=== PATIENT | male | born 1985 | race African-American/Black ===

== ENCOUNTER 2017-11-24 20:09 | Observation (INO) | payer OTHER ==
--- NOTE | 2017-11-24 20:33 | ER Document Report ---
ED General - General Chief Complaint: Hyperventilation Stated Complaint: SYNCOPE Time Seen by Provider: 11/24/17 20:19 Notes: Patient is a 32-year-old male comes emergency department for chief complaint of a syncopal episode. Patient comes by EMS. states that patient called her and said he was coming home from work because he was feeling lightheaded and nauseated, he states that he had pain in his chest. states that after he got home he took a few steps and then crumpled to the floor. She does not think he hit his head hard on the ground. She states that for at least a couple of minutes she could not arouse him, when she did arouse and he was able to answer her. No seizure activity. EMS states that patient began hyperventilating when they got there and has answered minimal questions. Past medical history of hypothyroidism on Synthroid, takes supplements, does not smoke, drinks alcohol ( states he has been drinking every day for the past few days, this is abnormal for him), and anxiety which is not medicated. denies history of panic attacks, syncope, or similar behavior. At this time patient states he hurts in his chest, he feels lightheaded, and he feels nauseated. He states he had chest pain before he passed out. He denies headache , focal numbness or weakness. - Related Data Allergies/Adverse Reactions: No Known Allergies Allergy (Unverified 11/24/17 20:31) Past Medical History - General Information source: Patient - Social History Smoking Status: Never Smoker Frequency of alcohol use: Social Drug Abuse: None Lives with: Family Family History: Reviewed & Not Pertinent - Medical History Medical History: Negative Surgical Hx: Negative - Immunizations Hx Diphtheria, Pertussis, Tetanus Vaccination: Yes Review of Systems - Review of Systems Constitutional: No symptoms reported EENT: No symptoms reported Cardiovascular: See HPI Respiratory: See HPI Gastrointestinal: No symptoms reported Genitourinary: No symptoms reported Male Genitourinary: No symptoms reported Musculoskeletal: No symptoms reported Skin: No symptoms reported Hematologic/Lymphatic: No symptoms reported Neurological/Psychological: See HPI Physical Exam - Vital signs Vitals: Resp BP Pulse Ox 29 H 129/71 H 100 11/24/17 20:12 11/24/17 20:12 11/24/17 20:12 - Notes Notes: GENERAL: Patient lying on the bed with his head back on the pillow with his eyes closed. HEAD: Normocephalic, atraumatic. EYES: Pupils slightly pinpoint, reactive to light, EOMs intact. ENT: Oral mucosa moist, tongue midline. [Nares patent, no nasal septal hematoma , TM's intact.] NECK: Full range of motion. Supple. Trachea midline. LUNGS: Clear to auscultation bilaterally, no wheezes, rales, or rhonchi. Mild tachypnea. HEART: Tachycardia with regular rhythm, no murmur ABDOMEN: Soft, non-tender. Non-distended. Bowel sounds present in all 4 quadrants. EXTREMITIES: Moves all 4 extremities spontaneously. No edema, normal radial and dorsalis pedis pulses bilaterally. No cyanosis. BACK: no cervical, thoracic, lumbar midline tenderness. No saddle anesthesia, normal distal neurovascular exam. NEUROLOGICAL: Patient cooperative but he appears slightly sedated, he is sluggish, he has amnesia to events, he asked his who she was, however he cooperates with a normal neurological exam otherwise with cranial nerves intact. SKIN: Warm, dry, normal turgor. No rashes or lesions noted. Course - Re-evaluation Re-evalutation: Patient lying on the bed, mild tachypnea, eyes closed, he will open his eyes and follow directions, he looked at his and asked "who are you". He does cooperate with the neurological exam. He is tachycardic, oxygen saturation is normal, blood pressure 129 systolic with map of 85. Workup pending. 11/24/17 CT of the head is negative, patient is much more calm and relaxed on reevaluation, has been given IV fluids, heart rate is 99. CBC is unremarkable. Chemistry shows elevated creatinine 1.62, no comparison. CK is only mildly elevated. Bicarb is slightly low at 19. Patient is cooperative, he still states he feels discomfort in his chest, he still is disoriented to events, he states that he was told he is in the hospital and he remembers that but he has been unable to identify new family members coming into the room. Patient denies recreational drugs, states she is concerned he might have taken something, drug screen has not yet resulted. Drug screen is negative. On reevaluation patient with no complaints. States his chest pain is resolved, states he feels fine, just tired. No current complaints. I am unsure what the cause of his chest pain, syncopal episode, and confusions. I suspect that he hit his head and he is postconcussive although he does not have any evidence of head injury on evaluation. Patient is significantly improved now, he is much more alert and oriented, he still does not remember all the events. He is not decompensating. I discussed with Dr. Schafer, because of his concerning reported symptoms including chest pain with syncope he recommends telemetry observation. Discussed with hospitalist, Dr. Smith, patient will be admitted to telemetry observation. Patient and family state understanding and agreement. - Vital Signs Vital signs: Temp Pulse Resp BP Pulse Ox 98.5 F 65 22 H 95/48 L 100 11/25/17 04:00 11/25/17 04:00 11/25/17 04:00 11/25/17 04:00 11/25/17 04:00 - Laboratory Result Diagrams: 11/24/17 19:45 11/24/17 19:45 Laboratory results interpreted by me: 11/24/17 11/24/17 11/24/17 19:45 19:45 22:44 Lymphocytes % 45.2 H Carbon Dioxide 19 L Creatinine 1.62 H Est GFR (Non-Af Amer) 50 L Creatine Kinase 408 H Urine Protein 30 H Urine Ketones 20 H Discharge - Discharge Clinical Impression: Episode of syncope Qualifiers: Syncope type: unspecified Qualified Code(s): R55 - Syncope and collapse Chest pain Qualifiers: Chest pain type: unspecified Qualified Code(s): R07.9 - Chest pain, unspecified Head injury Qualifiers: Encounter type: initial encounter Qualified Code(s): S09.90XA - Unspecified injury of head, initial encounter Condition: Stable Disposition: ADMITTED OBSERVATION Admitting Provider: Hospitalist Unit Admitted: Telemetry
[2017-11-24] MEDS ORDERED: NORMAL SALINE 1000 ML 1,000 ML IV ONE (20:34)
--- NOTE | 2017-11-24 20:35 | EKG REPORT ---
SEVERITY:- BORDERLINE ECG - SINUS RHYTHM PROBABLE LEFT ATRIAL ABNORMALITY LOW VOLTAGE IN FRONTAL LEADS : Confirmed by: Roshan Rodriguez MD 24-Nov-2017 20:34:39
[2017-11-24 21:07] LABS: ABSOLUTE EOSINOPHILS # (AUTO) 0.1 10^3/uL (0.0-0.6); ABSOLUTE LYMPHOCYTES (AUTO) 2.6 10^3/uL (0.5-4.7); ABSOLUTE MONOCYTES (AUTO) 0.6 10^3/uL (0.1-1.4); ABSOLUTE NEUT (AUTO) 2.5 10^3/uL (1.7-8.2); BASOPHILS % (AUTO) 0.7 % (0-2); EOSINOPHILS % (AUTO) 0.9 % (0-6); HEMATOCRIT 45.3 % (37.9-51.0); HEMOGLOBIN 15.5 g/dL (13.5-17.0); LYMPHOCYTES % (AUTO) 45.2 % (13-45); MEAN CORPUSCULAR HEMOGLOBIN 30.1 pg (27.0-33.4); MEAN CORPUSCULAR HGB CONC 34.2 g/dL (32.0-36.0); MEAN CORPUSCULAR VOLUME 88 fl (80-97); MONOCYTES % (AUTO) 10.4 % (3-13); PLATELET COUNT 210 10^3/uL (150-450); RED BLOOD COUNT 5.15 10^6/uL (4.35-5.55); RED CELL DISTRIBUTION WIDTH 13.9 % (11.5-14.0); SEGMENTED NEUTROPHILS % (AUTO) 42.8 % (42-78); TOTAL CELLS COUNTED % (AUTO) 100 %; WHITE BLOOD COUNT 5.8 10^3/uL (4.0-10.5)
--- NOTE | 2017-11-24 21:18 | RADIOLOGY REPORT (SQ) ---
EXAM DESCRIPTION: CT HEAD WITHOUT COMPLETED DATE/TIME: 11/24/2017 9:03 pm REASON FOR STUDY: syncopal episode, ? head injury, confusion COMPARISON: None. TECHNIQUE: Axial images acquired through the brain without intravenous contrast. Images reviewed wi th bone, brain and subdural windows. Additional sagittal and coronal reconstructions were generated. Images stored on PACS. All CT scanners at this facility use dose modulation, iterative reconstruction, and/or weight based d osing when appropriate to reduce radiation dose to as low as reasonably achievable (ALARA). [facility]: Dose Right [facility]: CareDose [facility]: Dose Right [facility]: Teradose 4D [facility]: LoveByte RADIATION DOSE: CT Rad equipment meets quality standard of care and radiation dose reduction techniq ues were employed. CTDIvol: 55.2 mGy. DLP: 1001 mGy-cm. mGy. LIMITATIONS: None. FINDINGS: VENTRICLES: Normal size and contour. CEREBRUM: No masses. No hemorrhage. No midline shift. No evidence for acute infarction. Normal gra y/white matter differentiation. No areas of low density in the white matter. CEREBELLUM: No masses. No hemorrhage. No alteration of density. No evidence for acute infarction. EXTRAAXIAL SPACES: No fluid collections. No masses. ORBITS AND GLOBE: No intra- or extraconal masses. Normal contour of globe without masses. CALVARIUM: No fracture. PARANASAL SINUSES: No fluid or mucosal thickening. SOFT TISSUES: No mass or hematoma. OTHER: No other significant finding. IMPRESSION: NORMAL BRAIN CT WITHOUT CONTRAST. EVIDENCE OF ACUTE STROKE: NO. COMMENT: Quality ID # [id number]: Final reports with documentation of one or more dose reduction techniques (e.g., Automated exposure control, adjustment of the mA and/or kV according to patient size, use of iterative reconstruction technique) TECHNICAL DOCUMENTATION: JOB ID: [id number] [email or web address]- All Rights Reserved Reading location - IP/workstation name: [email or web address]
--- NOTE | 2017-11-24 21:19 | RADIOLOGY REPORT (SQ) ---
EXAM DESCRIPTION: CHEST SINGLE VIEW COMPLETED DATE/TIME: 11/24/2017 9:10 pm REASON FOR STUDY: chest pain COMPARISON: None. EXAM PARAMETERS: NUMBER OF VIEWS: One view. TECHNIQUE: Single frontal radiographic view of the chest acquired. RADIATION DOSE: NA LIMITATIONS: None. FINDINGS: LUNGS AND PLEURA: No opacities, masses or pneumothorax. No pleural effusion. MEDIASTINUM AND HILAR STRUCTURES: No masses. Contour normal. HEART AND VASCULAR STRUCTURES: Heart normal in size. Normal vasculature. BONES: No acute findings. HARDWARE: None in the chest. OTHER: No other significant finding. IMPRESSION: NO ACUTE RADIOGRAPHIC FINDING IN THE CHEST. TECHNICAL DOCUMENTATION: JOB ID: [id number] [employer]- All Rights Reserved Reading location - IP/workstation name: [email or web address]
[2017-11-24 21:22] LABS: ALANINE AMINOTRANSFERASE 27 U/L (21-72); ALBUMIN 4.7 g/dL (3.5-5.0); ALKALINE PHOSPHATASE 82 U/L (38-126); ANION GAP 18 (5-19); ASPARTATE AMINO TRANSFERASE 34 U/L (17-59); BILIRUBIN,DIRECT 0.3 mg/dL (0.0-0.4); BILIRUBIN,TOTAL 0.8 mg/dL (0.2-1.3); BLOOD UREA NITROGEN 15 mg/dL (7-20); CARBON DIOXIDE 19 mmol/L (22-30); CHLORIDE 107 mmol/L (98-107); CREATINE KINASE 408 U/L (55-170); GLUCOSE 84 mg/dL (75-110); POTASSIUM 4.1 mmol/L (3.6-5.0); TOTAL PROTEIN 8.2 g/dL (6.3-8.2)
[2017-11-24 21:23] LABS: ALCOHOL < 10 mg/dL (NONE DETECTED)
[2017-11-24 21:33] LABS: CREATINE KINASE MB 0.42 ng/mL (<4.55)
[2017-11-24 21:34] LABS: TROPONIN I < 0.012 ng/mL
[2017-11-24] MEDS ORDERED: RINGERS SOLUTION,LACTATED 1,000 ML IV PRN (22:21)
--- NOTE | 2017-11-24 23:21 | RADIOLOGY REPORT (SQ) ---
PROCEDURE: CT OF THE CHEST WITH INTRAVENOUS CONTRAST HISTORY: chest pain, shortness of breath, tachycardia Indication: Same as above Comparison: None Technique: The study was performed at 11:06 PM on 11/24/2017 CT of the chest was done with intravenous contrast followed by CT angiography of the pulmonary arteries. Coronal, Sagittal and 3D volumetric MIP reconstructions were generated from the acquired data. The patient was injected with radiographic contrast intravenously, without any documented immediate adverse reactions. This exam was performed according to our departmental dose-optimization program, which includes automated exposure control, adjustment of the mA and/or KV according to the patient's size and/or use of iterative reconstruction technique. FINDINGS: There is no visualization of filling defects in the main pulmonary trunk, main right and left pulmonary arteries or their lower order branches to suggest pulmonary embolism. The bilateral main pulmonary arteries are normal in caliber. There is no evidence of interventricular septal deviation or filling defects in the cardiac chambers. There are no discrete airspace infiltrates, pneumothoraces or pleural effusions. The trachea, bilateral mainstem bronchi and the bilateral main segmental bronchi are patent without any intraluminal mass lesions. There is no gross evidence of clinically significant thoracic aortic aneurysm or thoracic aortic dissection. There is no clinically significant pericardial effusion. There are no pathologically enlarged lymph nodes in the mediastinum, bilateral hilar, bilateral supraclavicular or the bilateral axillary regions. The thoracic bony rib cage appears grossly unremarkable. The visualized thoracic spine is unremarkable. Limited evaluation of the evaluated upper abdomen does not show any gross abnormalities. IMPRESSION: There is no pulmonary embolism, airspace infiltrates or pleural effusions
[2017-11-24 23:48] LABS: APPEARANCE,URINE CLEAR; BILIRUBIN,URINE NEGATIVE (NEGATIVE); COLOR,URINE YELLOW; GLUCOSE, URINE NEGATIVE (NEGATIVE); KETONES,URINE 20 mg/dL (NEGATIVE); LEUKOCYTE ESTERASE,URINE NEGATIVE (NEGATIVE); NITRITE,URINE NEGATIVE (NEGATIVE); PROTEIN,URINE 30 mg/dL (NEGATIVE); URINE SPECIFIC GRAVITY 1.026; UROBILINOGEN,URINE NEGATIVE mg/dL (<2.0)
[2017-11-25 00:07] LABS: URINE AMPHETAMINES SCREEN NEGATIVE; URINE BARBITURATES SCREEN NEGATIVE; URINE BENZODIAZEPINES SCREEN NEGATIVE; URINE COCAINE SCREEN NEGATIVE; URINE MARIJUANA (THC) SCREEN NEGATIVE; URINE METHADONE SCREEN NEGATIVE; URINE PHENCYCLIDINE SCREEN NEGATIVE
[2017-11-25] MEDS ORDERED: GLUCAGON,HUMAN RECOMB 1 MG INJ SUBCUT PRN (01:52)
[2017-11-25] MEDS ORDERED: DEXTROSE 50%-WATER 25 GM/50 ML DISP.SYRIN IV PRN ×2 (01:52)
[2017-11-25] MEDS ORDERED: DEXTROSE 40% GEL 15 GM TUBE PO PRN ×2 (01:52)
[2017-11-25] MEDS ORDERED: MAG HYDROX/AL HYDROX/SIMETH SUSP 30 ML UDCUP PO PRN (02:01)
[2017-11-25] MEDS ORDERED: MAGNESIUM HYDROXIDE SUSP 30 ML UDCUP PO PRN (02:01)
[2017-11-25] MEDS ORDERED: ONDANSETRON HCL INJ/PF 4 MG/2 ML SDV IV PRN (02:01)
[2017-11-25] MEDS ORDERED: ACETAMINOPHEN 325 MG TABLET PO PRN (02:01)
[2017-11-25] MEDS ORDERED: LORAZEPAM INJ 2 MG/1 ML VIAL IV PRN (02:21)
--- NOTE | 2017-11-25 02:46 | PDOC H&P ---
History of Present Illness Admission Date/PCP: 11/25/17 01:35 Primary CARE physician: [facility] Patient complains of: Chest pain, lightheadedness and syncope History of Present Illness: DESTINY RAMIREZ is a 32 year old male with history of hypothyroidism who presented to the emergency room with acute onset of chest pain followed by lightheadedness and syncope for 2 minutes after which he was aroused by his and was able to answer her. There was no witnessed seizure activity. 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 The symptoms started at work any syncope happened when he arrived home. He was hyperventilating up upon arrival of EMS and answers minimal questions. He denied any paresthesias or focal muscle weakness. No palpitations. No abdominal pain or melena or bright red bleeding per rectum. No cough or wheezing or hemoptysis. No urinary or stool incontinence or vertigo or tinnitus. He has been drinking alcohol every day for the past few days per his and that is abnormal for him. She believes that he may have untreated anxiety. When he came to the ER, his respiratory rate was 29, heart rate was 88 blood pressure was 129/71 with a pulse oximetry of 100% on room air. Labs revealed normal CBC with normal d-dimer of 0.4 and his BMP was remarkable for a creatinine of 1.62 and CO2 of 19. CK was 408, CK-MB of 0.42 and troponin I less than 0.0 12 twice. Urine showed 20 ketones and 30 protein. Urine drug screen came back negative and alcohol level is less than 10. He had a head CT scan without contrast that revealed no acute intracranial abnormalities. He had a chest CT angiogram that revealed no PE and portable chest x-ray that showed no acute cardiopulmonary disease. EKG showed normal sinus rhythm with a rate of 99 with probable left atrial enlargement and no acute findings. The patient will be admitted to an observation telemetry bed for further evaluation and management. Past Medical History Endocrine Medical History: Reports: Hypothyroidism Past Surgical History Past Surgical History: Reports: None Social History Smoking Status: Never Smoker Frequency of Alcohol Use: Social - He has been drinking a beer with dinner daily over the last few days which is unusual for him Hx Recreational Drug Use: No Hx Prescription Drug Abuse: No Family History Family History: CVA - In his uncle Parental Family History Reviewed: Yes Children Family History Reviewed: Yes Sibling(s) Family History Reviewed.: Yes Medication/Allergy Allergies/Adverse Reactions: No Known Allergies Allergy (Unverified 11/24/17 20:31) Review of Systems Review of Systems: As per history of present illness. All pertinent systems were reviewed above. Constitutional, HEENT, cardiovascular, respiratory, GI, , musculoskeletal, neuro, psychiatric, endocrine, integumentary and hematologic systems were reviewed and are otherwise negative/unremarkable except for positive findings mentioned above in the HPI. Physical Exam Vital Signs: Temp Pulse Resp BP Pulse Ox 98.0 F 108 H 18 136/75 H 97 11/24/17 20:30 11/24/17 20:30 11/25/17 00:00 11/24/17 22:01 11/25/17 00:00 Exam: Generally: Pleasant somnolent but arousable middle-aged -[place] male in no acute distress Vital signs-as listed Head - atraumatic, normocephalic. Pupils - equal, round and reactive to light and accommodation. Extraocular movements are intact. No scleral icterus. Oropharynx - moist mucous membranes and tongue. No pharyngeal erythema or exudate. Neck - supple. No JVD. Carotid pulses 2+ bilaterally. No carotid bruits. No palpable thyromegaly or lymphadenopathy. Cardiovascular - regular rate and rhythm. Normal S1 and S2. No murmurs, gallops or rubs. Lungs - clear to auscultation bilaterally. Abdomen - soft and nontender. Positive bowel sounds. No palpable organomegaly or masses. Extremities - no pitting edema, clubbing or cyanosis. Neuro -cranial nerves II through XII are grossly intact. Muscle strength were equal 5/5 in both upper and lower extremities with normal sensory exam to light touch. Gait was not tested. He was alert and oriented initially 2 and upon further questioning he was able to say the year and the day correctly. Skin - no rashes. and rectal exam - deferred. Results Impressions: Chest X-Ray 11/24/17 20:27 IMPRESSION: NO ACUTE RADIOGRAPHIC FINDING IN THE CHEST. Head CT 11/24/17 20:28 IMPRESSION: NORMAL BRAIN CT WITHOUT CONTRAST. EVIDENCE OF ACUTE STROKE: NO. Chest/Abdomen CTA 11/24/17 22:21 IMPRESSION: There is no pulmonary embolism, airspace infiltrates or pleural effusions Assessment & Plan - Diagnosis (1) Chest pain Qualifiers: Chest pain type: unspecified Qualified Code(s): R07.9 - Chest pain, unspecified Is this a current diagnosis for this admission?: Yes Plan: Chest pain, rule out acute coronary syndrome. The patient will be admitted to an observation telemetry bed. Will follow serial cardiac enzymes and EKGs. We will obtain a cardiology consult in a.m. for further cardiac risk stratification. The patient will be placed on aspirin as well as p.r.n. sublingual nitroglycerin and morphine sulfate for pain. (2) Episode of syncope Qualifiers: Syncope type: unspecified Qualified Code(s): R55 - Syncope and collapse Is this a current diagnosis for this admission?: Yes Plan: The patient was admitted to an observation medically monitored bed. Will check her orthostatics q.12 hours. Will obtain a 2D echo. The patient will be gently hydrated with IV normal saline and monitored for arrhythmias. Differential diagnosis would include heat exhaustion, neuraly mediated syncope, cardiogenic, arrhythmias related, orthostatic hypotension and less likely hypoglycemia. (3) Head injury Qualifiers: Encounter type: initial encounter Qualified Code(s): S09.90XA - Unspecified injury of head, initial encounter Is this a current diagnosis for this admission?: Yes Plan: Neurochecks will be obtained every 4 hours for the possibility of concussion. (4) Hypothyroidism Is this a current diagnosis for this admission?: Yes Plan: We will continue Synthroid and check TSH (5) DVT prophylaxis Is this a current diagnosis for this admission?: Yes Plan: Subcutaneous Lovenox - Plan Summary Plan Summary: The plan of care was discussed in details with the patient. I answered all questions. The patient agreed to proceed with the above-mentioned plan. The patient is presumably full code. This note was created by [employer] software and may contain typo errors that may have not been proofread.
[2017-11-25] MEDS: NORMAL SALINE 1000 ML 1,000 ML IV PRN ×2 (05:04→15:28)
[2017-11-25] MEDS: LANSOPRAZOLE 30 MG TAB.RAP.DR PO SCH (05:08)
[2017-11-25 09:13] LABS: CREATINE KINASE MB 0.42 ng/mL (<4.55)
[2017-11-25 09:20] LABS: TROPONIN I < 0.012 ng/mL
[2017-11-25] MEDS: ENOXAPARIN SODIUM INJ 40 MG/0.4 ML DISP.SYRIN SUBCUT SCH (10:40)
[2017-11-25] MEDS ORDERED: NITROGLYCERIN 0.4 MG/TAB 25 TAB/BOTTLE SL PRN (10:49)
--- NOTE | 2017-11-25 14:01 | EKG REPORT ---
SEVERITY:- BORDERLINE ECG - SINUS RHYTHM VENTRICULAR PREMATURE COMPLEX LOW VOLTAGE IN FRONTAL LEADS : Confirmed by: Roshan Rodriguez MD 25-Nov-2017 14:00:21
[2017-11-25 15:45] LABS: CREATINE KINASE MB 0.42 ng/mL (<4.55)
[2017-11-25 15:46] LABS: TROPONIN I < 0.012 ng/mL
[2017-11-25] MEDS ORDERED: NORMAL SALINE 1000 ML 1,000 ML with POTASSIUM CHLORIDE 20 MEQ, MAGNESIUM SULFATE 8 MEQ,... IV SCH ×5 (18:00)
[2017-11-25 21:10] LABS: CREATINE KINASE MB 0.37 ng/mL (<4.55)
[2017-11-25 21:29] LABS: TROPONIN I < 0.012 ng/mL
[2017-11-26] MEDS: NORMAL SALINE 1000 ML 1,000 ML IV PRN (04:31)
[2017-11-26] MEDS: LANSOPRAZOLE 30 MG TAB.RAP.DR PO SCH (05:30)
[2017-11-26 05:38] LABS: ANION GAP 7 (5-19); BLOOD UREA NITROGEN 13 mg/dL (7-20); CALCIUM 8.2 mg/dL (8.4-10.2); CARBON DIOXIDE 23 mmol/L (22-30); CHLORIDE 112 mmol/L (98-107); GLUCOSE 105 mg/dL (75-110); POTASSIUM 3.9 mmol/L (3.6-5.0)
[2017-11-26] MEDS ORDERED: LEVOTHYROXINE SODIUM 0.025 MG TABLET PO SCH (06:00)
[2017-11-26] MEDS ORDERED: LEVOTHYROXINE SODIUM 0.1 MG TABLET PO SCH (06:00)
[2017-11-26] MEDS ORDERED: FLUTICASONE NASAL SPRAY 50 MCG/SPRY 120 SPRAY/16 GM NASL SCH (10:00)
[2017-11-26] MEDS ORDERED: CHOLECALCIFEROL (D3) 400 UNIT TABLET PO SCH (10:00)
[2017-11-26] MEDS ORDERED: MULTIVITAMIN TABLET PO SCH (10:00)
[2017-11-26] MEDS: ENOXAPARIN SODIUM INJ 40 MG/0.4 ML DISP.SYRIN SUBCUT SCH (10:20)
--- NOTE | 2017-11-26 16:04 | CONSULTATION REPORT E ---
Consultation Report NAME: DESTINY RAMIREZ : 1985 AGE: 32Y DATE: 11/26/2017 319 A TO: NORA BENÍTEZ M.D. FROM: MARIA ESTHER WILBURN M.D. Requesting Physician REASON FOR CONSULTATION: Chest pain and syncope. History obtained from the patient and the patient's . HISTORY OF PRESENT ILLNESS: The patient is a 32-year-old -[place]aur[place] male with a history of hypothyroidism. States, as per the , that he walked into the house appearing to breathe heavily and having shortness of breath and complained of chest pain, which the patient states is in the left front of the chest. He states that it lasted several hours and it did not increase with any movements or with exertion, it remained the same. It was also with some shortness of breath. The patient stated although he had no tingling or numbness of his lips or syncopal region, he had a syncopal episode and was unconscious for over 2 minutes without any seizure activity and no tongue biting or urinary or fecal incontinence. The patient states that when he woke up he was slightly confused for a few minutes and then subsequently his thoughts became clear. He denies any palpitations. The chest pain lasted for at least half an hour to an hour and he states that if he pressed on his chest his chest pain was better. It was a squeezing pain and also a dull ache. He has not had this before. There is no prior history of syncope. He denies having PND or orthopnea, leg edema, cough, sputum production, wheezing, or nausea, vomiting. No focal deficits. No headaches. PAST MEDICAL HISTORY: Positive for hypothyroidism. There is no history of hypertension, no history of diabetes mellitus, no history of TIA or CVA. He probably appears anxious and also states that he was told that he has PTSD, but he has not had treatment for that. There is no history of diabetes mellitus. No history of chronic kidney disease. There are no prior syncopal episodes. No history of cardiac arrhythmia, no history of coronary artery disease. The patient does have history of hypothyroidism and is on replacement. His TSH levels are good at present. PAST SURGICAL HISTORY: Positive for eye surgery to correct the patient's vision. FAMILY HISTORY: Positive for hypertension, negative for coronary artery disease or sudden deaths. ALLERGIES: The patient has no known allergies. DISPOSITION: THE PATIENT IS FULL CODE. His is a surrogate healthcare decision maker. MEDICATIONS: 1. Tylenol 650 mg p.o. q. 4 hours p.r.n. 2. Folic acid 400 units. 3. Dextrose 15 grams p.o. p.r.n. 4. Dextrose 30 grams p.o. p.r.n. 5. 40% 30 grams p.o. p.r.n. and 15 grams p.r.n. hypoglycemia. 6. He is on Dextrose 50% 25 grams IV p.r.n. and 12.5 grams IV p.r.n. hypoglycemia. 7. Lovenox 40 mg subcutaneously daily. 8. He is on fluticasone propionate Flonase 1 spray nasally daily. 9. Glucagon 1 mg subcutaneously p.r.n. 10. Potassium chloride 20 mEq IV q. p.m. 11. He is on normal saline. He had a total bolus of 1000 mL and also ringers solution at 1000 mL. He is on normal saline at wide open. 12. He is on Prevacid 30 mg p.o. q. 6 a.m. 13. Levothyroxine 0.125 mg p.o. q. 6 a.m. 14. Ativan 1 mg IV q. 12 hours p.r.n. 15. Magnesium hydroxide simethicone 30 mL p.o. q. 6 hours p.r.n. 16. Magnesium hydroxide 30 mL p.o. at bedtime p.r.n. 17. Multivitamin 1 tablet p.o. daily. 18. He is on nitroglycerine 1000 sublingually q. 5 minutes p.r.n. 19. He is on Zofran 4 mg IV q. 4 hours p.r.n. SOCIAL HISTORY: The patient does not smoke. There is no history of ETOH or street drug abuse. 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 REVIEW OF SYSTEMS: CONSTITUTIONAL: Denies any fever, chills, or rigors. Complains of generalized fatigue and generalized weakness. HEAD: Denies headache. No dizziness. EYES: No history of amblyopia or diplopia. No history of amaurosis fugax. No history of glaucoma. EARS: No history of hearing loss. No history of tinnitus. No history of recurrent ear infections. NOSE: History of nasal allergies. Patient uses Flonase for that but no definite history of hay fever. No history of nasal polyps. No history of nosebleeds. MOUTH: No history of altered taste sensation. No ulcer in the mouth. THROAT: No odynophagia or dysphagia. No history of recurrent sore throats. SKIN: No pruritus. No yellowish discoloration of the skin. No psoriasis and no eczema. LUNGS: No history of asthma or COPD. No history of sleep apnea. No history of pulmonary embolism. No history of cough or sputum production. No symptoms of pleuritic chest pain. The patient does seem to have chest wall pain with the pain being better with the patient supporting the chest. There is no history of injury to the chest or the patient moving any furniture or heavy objects. He has no symptoms of upper or lower respiratory tract infections. CARDIAC: Denies history of hypertension. No history of coronary artery disease or congenital heart disease. No history of congestive heart failure. No history of cardiac arrhythmia. No history of leg edema, no history of PND or orthopnea. Positive for syncope with the patient waking up after 2 minutes of syncope. The patient appeared to have brief episode of confusion. GI: No history of GI bleed. No history of fatty food intolerance. No history of jaundice. No history of ascites. No history of cirrhosis. No history of abdominal pain, no history of GERD. No history of altered bowel movements. His appetite and p.o. fluid intake has been decreased in the past few days. RENAL: No history of chronic kidney disease. No symptoms of enlarged prostate. No history of hematuria, pyuria, or dysuria. No history of symptoms of UTI. MUSCULOSKELETAL: Denies arthritis or collagen vascular disease. ENDOCRINE: No history of diabetes mellitus. No history of thyroid disease. No history of polydipsia or polyuria. No history of heat or cold intolerance. The patient does have hypothyroidism and is on replacement. CENTRAL NERVOUS SYSTEM: No history of TIA or CVA. No history of headaches, seizures or migraines. No history of gait imbalance. PSYCHIATRIC: The patient does appear to be having acute anxiety. There is no evidence of homicidal or suicidal ideation. The patient does have PTDS which has not been treated. VASCULAR: No history of calf or buttock claudication. No history of DVT. HEMATOLOGICAL: No history of bleeding diathesis. No history of clotting disorders. METABOLIC: The patient has a history of vitamin D deficiency. There is no history of obesity. PHYSICAL EXAMINATION: GENERAL: The patient is well-developed, well-nourished in no acute distress. He is well-groomed. He does appear to be slightly anxious. VITAL SIGNS: He is afebrile with a temperature of 98.7 degrees Fahrenheit. Pulse is 85 per minute, blood pressure is 102/65, respirations are 16 per minute, O2 saturations are 100% on room air. HEAD: Atraumatic, normocephalic. EYES: Pupils are equal, round, regular, reactive to light and accommodation. Extraocular movements are normal. There is no conjunctival pallor. There is no scleral icterus. EARS: Tympanic membranes are intact. External auditory canals are clear. NOSE: There is no deviated nasal septum. There is no inflammation of the nasal mucous membrane. MOUTH: Mucous membranes of the mouth are moist. Tongue is moist. There are no ulcers. There is no bleeding from the gums. THROAT: There is no redness of the oropharynx. There are no exudates. SKIN: There are no skin rashes. There is skin lesions. There is no petechia or ecchymosis. NECK: Supple. There is no JVD. Carotids are equal. There is no bruit. There is no lymphadenopathy. There is no goiter. Trachea is centered. LUNGS: Clear to auscultation and percussion. There is no chest wall tenderness. CARDIOVASCULAR: S1 and S2 are heard. There is no S3 gallop. There is no S4 gallop. Cannot entirely exclude a mitral valve prolapse click. There is no CV mitral regurgitation murmur. S1 is of normal intensity. There are no gallops. ABDOMEN: Soft, nontender. There is no hepatosplenomegaly. Bowel sounds are well heard. There is no tenderness or masses. EXTREMITIES: Femorals are well-felt. There is no femoral bruit. Leg pulses are felt. There is no pedal edema. There is no DVT or cellulitis. There is no calf tenderness. CENTRAL NERVOUS SYSTEM: The patient is conscious, awake, alert, oriented x3 without deficit. PSYCHIATRIC: The patient does appear to be slightly anxious but his judgement and insight are intact. His affect is normal. DIAGNOSTIC STUDIES: The patient's chest x-ray is negative. The patient's head CT is negative. The patient's EKG, in my interpretation, shows early otherwise EKG is normal with no voltage in the frontal leads. No acute ischemia or OR. His repeat EKG shows no evidence of ischemia or injury of OR. His sodium is 144.0, potassium 4.1, chloride 107, CO2 is 19. The patient's BUN is 15, creatinine is 1.62. GFR is greater than 60. His glucose is 84, calcium is 10. His liver function tests were normal. His CPK is elevated at 408 and 317 with negative CPK-MB. His troponin-I is negative x3. His TSH is 1.16, and his albumin is 4.7. His total protein is 8.2. His D-dimer is 0.40. His serum alcohol was less than 10. His urine opiates, urine methadone, urine barbiturates, phencyclidine, amphetamines, benzodiazepines and urine cocaine screen are all negative. His chest abdomen CTA shows there is no pulmonary embolism, infiltrates, or pleural effusions. Essentially normal CTA. IMPRESSION: 1. Chest pain, most likely noncardiac. So far EKG is bland and cardiac markers are negative. 2. Syncope, questionable etiology. The differential diagnosis is neurologic versus psychogenic versus cardiac etiology. So far monitoring has not shown any arrhythmias. The patient may need a 30-day event monitor as an outpatient and also an EEG to make sure that this is not a atypical seizure. 3. Positive anxiety. 4. Positive PTSD. For the PTSD and anxiety I would recommend having a psychiatric evaluation. 5. Hypothyroidism, on replacement. TSH levels are normal. Also questionable . Would recommend getting an echocardiogram to see if the patient has any other cardiac etiologies such as which may extend patient's syncope from the cardiac point of view. NOTE: Sixty minutes spent on this patient with more than 50% of the time spent in direct patient care. His medications have been reviewed and discussed with the patient and the patient's . All questions answered. Medical decision making at present is our prior complexity. DISPOSITION: THE PATIENT IS A FULL CODE. His is a surrogate healthcare decision maker. DICTATING PHYSICIAN: NORA BENÍTEZ M.D. [id number] PHY#: [id number] ID: [id number] JOB#: [id number] ACCT: [id number] cc:NORA BENÍTEZ M.D. >
--- NOTE | 2017-11-26 17:09 | PSYCHOLOGICAL NOTE ---
Psych Note - Psych Note Psych Note: Reason for consult: Amnesia Consent permissions: None given DESTINY RAMIREZ is a 32 year old male with history of hypothyroidism who presented to the emergency room with acute onset of chest pain followed by lightheadedness and syncope for 2 minutes after which he was aroused by his and was able to answer her. There is ongoing concern that the patient reports being unable to recognize friends and family. Patient disclosed that he came to [facility] ED because "I was told I passed out." He reports that he does have a previous diagnosis of PTSD and anxiety and discloses that his told him that he goes to [place] for appointments. 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 He disclosed that he joined the [employer] in 2004 and is a E5. He discloses that she remembers her last day of work being "workups for deployment." He states that he knows they were deploying to [facility]. When asked if he remembered ever going to [facility] and for that deployment patient paused and stated that he remembered being there and he was there for almost a year. 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 At that point patient received a visitor and he asked the visit to wait outside during the evaluation. Clinician asked if he knew the plan with the patient was and he stated "I do not but he came with my yesterday." He denies thoughts of self-harm or wanting to kill himself and denies homicidal ideation. Patient reports that as his is leaving yesterday he tried to take a nap where he was getting "flashes of the city" and when asked what city he stated "this city...[place]." Clinician notes patient was able to correctly identify the current month day year, current president and the 2 previous presidents. Clinician met patients visit her outside he disclosed that he is the patient's town justice, [place]. He reports he is known the patient since 2007. He disclosed that he knows the patient has been under heavy stress due to marital discord and possibly financial. He states that the patient is very introverted and does not really open up to others. He reports that he does have for men that he does talk to in the mosque. He reports that just prior to this episode there was a significant stressor that was leading to possible divorce between the patient and his spouse. When asked if the patient how the patient was acting just prior to this event that led to his [facility] visit he reports the patient was not acting out of character. Clinician spoke with patient's spouse Susy who discloses the patient was discharged honorably in 2014. She reports that the patient remembers most of his family (patient has 13 siblings) however not all of them. She discloses the patient does not remember his nieces and nephews other than one that and did not remember that he . She reports that the patient's father in May of this year and did not remember that he and became very despondent on this information. She discloses that the patient has no memory of her how they met that she was in the with him or getting . She discloses that the patient stated "you have proven to me that your my " because she has been taking care of them been there every day and has shown him pictures and has the same last name. She reports the patient was not acting out of character just prior to the passing out episode. She does disclose they were arguing when he stated that he was feeling sick his chest hurt and felt dizzy. Patient is alert and orientated to person, place, time and circumstance. Mood is euthymic with congruent affect as openly engaging with clinician and smiling. Patient denies suicidal and homicidal ideation. Delusions are absent behaviors congruent with an intact reality based presentation i.e. organized and linear thought process. Eye contact was maintained. Conversational speech is within normal rate, tone and prosody. Intellectual abilities appear to be within the average range. Attention and concentration were good. Insight, judgment, impulse control are good. No medication recommendations at this time Diagnosis V61.10 (Z63.0) relationship to stress with spouse Impression\\plan: Patient is cleared from acute psychiatric services. There was concern the patient was demonstrating either amnesia or disassociating. Patient 's reported memory lapses are not consistent with traumatic brain injury or retrograde/anterograde amnesia (patient's head CT had normal findings). If patient was disassociating there would be complete memory loss, and this is not the case. Patient demonstrates complete orientation on person, circumstance time and place to include knowing the last 3 presidents however then states that he is unable to remember anything since at least 2014 to include anything of his and some family members. Patient also discloses that he has no memory of his town justice. Patient was identified as having significant stressors regarding his marriage and was in an argument just prior to his passing out episode. Patient denies homicidal suicidal ideation and at this time, the patient's disclosed concerns do not cause him significant distress or harm as evidenced by his euthymic mood and openly engaging with clinician and smiling. Dr. Navarro was consulted and the care management this patient; attending physician is agreement with recommendations and disposition.
--- NOTE | 2017-11-26 19:10 | XCELERA REPORT ---
[address] [address] Transthoracic Echocardiogram Report Name: DESTINY RAMIREZ Age: 32 yrs Gender: Male : 1985 Patient Status: Inpatient Patient Location: [address] [place], [place] [address]A Study Date: 11/26/2017 02:15 PM Procedure: A two-dimensional transthoracic echocardiogram with color flow Doppler was performed. The study was technically difficult with many images being suboptimal in quality. Reason For Study: Syncope History: Syncope. Ordering Physician: LENKA BENÍTEZ Performed By: Charity Samano Interpretation Summary The left ventricle is normal in size. There is normal left ventricular wall thickness. Left ventricular systolic function is normal. LV EF is 65% Doppler measurements suggest normal left ventricular diastolic function The left ventricular wall motion is normal. The right ventricle is not well visualized secondary to technical limitations Right atrium not well visualized secondary to technical limitations The left atrial size is normal. There is no mitral valve stenosis. There is no evidence of mitral valve prolapse. There is a trace to mild amount of mitral regurgitation There is no aortic valve stenosis There is no LVOT obstruction. No aortic regurgitation is present. There is no tricuspid stenosis. No tricuspid regurgitation. Unable to calculate RVSP due to insufficient TR jet. There is no pericardial effusion. MMode/2D Measurements & Calculations RVDd: 3.3 cm LVIDd: 4.8 cm FS: 37.4 % Ao root diam: 2.7 cm IVSd: 0.65 cm LVIDs: 3.0 cm EDV(Teich): 105.7 ml Ao root area: 5.8 cm2 LVPWd: 0.67 cm ESV(Teich): 34.5 ml EF(Teich): 67.4 % Doppler Measurements & Calculations MV E max ricardo: MV dec slope: Ao V2 max: LV V1 max P.5 cm/sec 95.4 cm/sec 2.9 mmHg MV A max ricardo: 456.8 cm/sec2 Ao max PG: LV V1 max: 40.1 cm/sec MV dec time: 0.20 sec 3.6 mmHg 85.3 cm/sec MV E/A: 2.3 PA V2 max: Pulm Sys Ricardo: 101.0 cm/sec 49.7 cm/sec PA max P.1 mmHg Pulm Caldwell Ricardo: 39.3 cm/sec Pulm A Revs Ricardo: 20.9 cm/sec Pulm A Revs Dur: 0.10 sec Pulm S/D: 1.3 Left Ventricle The left ventricle is normal in size. There is normal left ventricular wall thickness. Left ventricular systolic function is normal. LV EF is 65%. Doppler measurements suggest normal left ventricular diastolic function. The left ventricular wall motion is normal. There is no thrombus. Right Ventricle The right ventricle is not well visualized secondary to technical limitations. Atria Right atrium not well visualized secondary to technical limitations. The left atrial size is normal. Mitral Valve There is no evidence of mitral valve prolapse. There is no vegetation seen on the mitral valve. There is no mitral valve stenosis. There is a trace to mild amount of mitral regurgitation. Aortic Valve There is no aortic valvular vegetation. There is no aortic valve stenosis. There is no LVOT obstruction. No aortic regurgitation is present. Tricuspid Valve There is no tricuspid stenosis. No tricuspid regurgitation. Unable to calculate RVSP due to insufficient TR jet. Pulmonic Valve There is no pulmonic valvular stenosis. There is no pulmonic valvular regurgitation. Great Vessels The aortic root is normal size. Effusions There is no pericardial effusion. : LENKA BENÍTEZ > Lenka Benítez
[2017-11-26 19:53] VITALS: BP 179/71
--- NOTE | 2017-11-27 04:30 | PROGRESS NOTE E ---
Progress Note NAME: DESTINY RAMIREZ : 1985 AGE: 32Y DATE: 11/26/2017 ROOM: 319 SUBJECTIVE: The patient has no further chest pain. There is no syncope, dizziness, or near syncope. There is no arrhythmia seen on the monitor. The patient denies any shortness of breath or PND, orthopnea. OBJECTIVE: GENERAL: The patient is well built and well nourished, in no acute distress. VITAL SIGNS: He is afebrile with a temperature of 98.6 degrees Fahrenheit. Pulse is 76 beats per minute. Blood pressure is 109/72. Respirations are 18 per minute. O2 sats are 100% on room air. HEENT: Head is atraumatic, normocephalic. Eyes: Pupils are equal, round, regular, reactive to light and accommodation. Extraocular movements are normal. There is no conjunctival pallor. There is no scleral icterus. ENT is negative. NECK: Supple. There is no JVD. Carotids are equal. There is no bruit. There is no lymphadenopathy. There is no goiter. Trachea is central. LUNGS: Clear to auscultation and percussion. There is no chest wall tenderness. CARDIOVASCULAR: S1 and S2 are heard. There is no S3 gallop. There is no S4 gallop. There is a systolic murmur at the left sternal border at the apex. There is no rub. ABDOMEN: Soft, nontender. There is no hepatosplenomegaly. Bowel sounds are well heard. There is no tenderness or masses. EXTREMITIES: Femorals are well felt. There is no femoral bruit. Leg pulses well felt. There is no pedal edema. There is no DVT or cellulitis. There is no calf tenderness. CENTRAL NERVOUS SYSTEM: The patient is conscious, awake, alert, oriented x3 with no focal deficit. PSYCHIATRIC: The patient's judgment and insight are intact. His affect appears to be normal. LABORATORY DATA: The patient's sodium is 142. Potassium is 3.9. Chloride is 112. CO2 is *------*. The patient's BUN is 13. Creatinine is 1.18. GFR is greater than 60. His glucose is 105. Calcium is 8.2. IMPRESSION: 1. CHEST PAIN, NONCARDIAC, RESOLVED. 2. SYNCOPE. I DOUBT IF THIS IS TRUE SYNCOPE. 3. ANXIETY AND DEPRESSION. 4. PTSD. RECOMMENDATIONS: Note that the patient's echocardiogram was within normal limits except trace mild MR. This has been discussed with the patient. See report. Most likely the patient's cause is psychiatric. Will sign off the case. The patient can see me p.r.n. if he needs to. TIME SPENT: Forty minutes spent on this patient, with more than 50% of the time spent on direct patient care. His medications have been reviewed. Medical decision making is of moderate complexity. Will sign off the case. Discussed with the hospitalist. Echo findings were discussed with the patient and the patient's . Thanking you. DICTATING PHYSICIAN: NORA BENÍTEZ M.D. [id number] SARAH#: [id number] ID: [id number] JOB#: [id number] ACCT: [id number] cc: >
[2017-11-27] MEDS ORDERED: LANSOPRAZOLE 30 MG TAB.RAP.DR PO SCH (06:00)
--- NOTE | 2017-11-28 16:03 | PDOC DISCHARGE SUMMARY ---
General - Admit/Disc Date/PCP Admission Date/Primary Care Provider: 11/25/17 01:35 Discharge Date: 11/26/17 - Additional Information Discharge Activity: Activity As Tolerated Home Medications: Cholecalciferol (Vitamin D3) [Vitamin D3 400 Unit Tablet] 400 unit PO DAILY Fluticasone Propionate [Flonase Nasal [place] 50 Mcg/[place] 16 gm] 1 spray NASL DAILY 11/25/17 Levothyroxine Sodium [Synthroid] 125 mcg PO QAM 11/25/17 Multivitamin [Tab-A-Dianna (Multiple Vitamin) Tablet] 1 tab PO DAILY 11/25/17 History of Present Illness History of Present Illness: DESTINY FIORE is a 32 year old male with history of hypothyroidism who presented to the emergency room with acute onset of chest pain followed by lightheadedness and syncope for 2 minutes after which he was aroused by his and was able to answer her. There was no witnessed seizure activity. 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 The symptoms started at work any syncope happened when he arrived home. He was hyperventilating up upon arrival of EMS and answers minimal questions. He denied any paresthesias or focal muscle weakness. No palpitations. No abdominal pain or melena or bright red bleeding per rectum. No cough or wheezing or hemoptysis. No urinary or stool incontinence or vertigo or tinnitus. He has been drinking alcohol every day for the past few days per his and that is abnormal for him. She believes that he may have untreated anxiety. When he came to the ER, his respiratory rate was 29, heart rate was 88 blood pressure was 129/71 with a pulse oximetry of 100% on room air. Labs revealed normal CBC with normal d-dimer of 0.4 and his BMP was remarkable for a creatinine of 1.62 and CO2 of 19. CK was 408, CK-MB of 0.42 and troponin I less than 0.0 12 twice. Urine showed 20 ketones and 30 protein. Urine drug screen came back negative and alcohol level is less than 10. He had a head CT scan without contrast that revealed no acute intracranial abnormalities. He had a chest CT angiogram that revealed no PE and portable chest x-ray that showed no acute cardiopulmonary disease. EKG showed normal sinus rhythm with a rate of 99 with probable left atrial enlargement and no acute findings. Hospital Course Hospital Course: Mr. Fiore is a 32 yr male with a past medical history of hypothyroidism who was admitted for possible syncope. CT of the head was negative. Patient has been stable throughout the entire hospital course. However he was noted to have memory loss. There was a question if these memory loss is associated with a traumatic brain injury or is psychogenic. Patient does have history of PTSD. CT did not show any signs of brain concussion. Syncope workup was unremarkable. Echocardiogram was also normal. Psych was consulted. It appears that patient has been in a significant marital discord and is under a lot of financial and family stress. Psych the deemed that patient's memory loss is stressed later related and is not consistent with traumatic brain injury. On day of discharge, patient's memory improved and he said that he is able to remember and recall most of the people close to him. He was discharged and advised to watch out for recurrence of syncope, dizziness, nausea or vomiting or persistent headache. Physical Exam Vital Signs: Temp Pulse Resp BP Pulse Ox 98.6 F 76 18 109/72 100 11/26/17 15:38 11/26/17 15:38 11/26/17 15:38 11/26/17 15:38 11/26/17 15:38 Pulse Oximeter Continuous Start: 11/25/17 01: 52 Freq: RTQ4 Status: Active Document 11/26/17 12:06 [facility] (Rec: 11/26/17 12:06 [facility] [id number]) Pulse Oximetry Assessment Oxygen Saturation (92-100) 98 Oxygen Delivery Method Room Air Fraction of Inspired Oxygen (FIO2) 21 Equipment Usage Equipment in Use Continuous SpO2 Machine # 9 Intake & Output 11/25/17 11/26/17 11/27/17 06:59 06:59 06:59 Intake Total 1000 3023 781 Output Total 0 1000 1175 Balance 1000 2022 -394 Weight 155 lb 3.287 oz 159 lb 13.362 oz General appearance: PRESENT: no acute distress, well-developed, well-nourished Eye exam: PRESENT: conjunctival injection Mouth exam: PRESENT: moist, tongue midline Neck exam: ABSENT: carotid bruit, JVD, lymphadenopathy, thyromegaly Respiratory exam: PRESENT: clear to auscultation chip. ABSENT: rales, rhonchi, wheezes Cardiovascular exam: PRESENT: RRR. ABSENT: diastolic murmur, rubs, systolic murmur GI/Abdominal exam: PRESENT: normal bowel sounds, soft. ABSENT: distended, guarding, mass, organolmegaly, rebound, tenderness Rectal exam: PRESENT: deferred Extremities exam: PRESENT: full ROM. ABSENT: calf tenderness, clubbing, pedal edema Neurological exam: PRESENT: alert, awake, oriented to person, oriented to place , oriented to time, oriented to situation, CN II-XII grossly intact. ABSENT: motor sensory deficit Results Laboratory Results: 11/26/17 05:00 11/26/17 05:00 Sodium 142.0 Potassium 3.9 Chloride 112 H Carbon Dioxide 23 Anion Gap 7 BUN 13 Creatinine 1.18 Est GFR ( Amer) > 60 Est GFR (Non-Af Amer) > 60 Glucose 105 Calcium 8.2 L 11/25/17 11/25/17 11/25/17 08:02 08:02 14:45 Creatine Kinase 317 H 338 H CK-MB (CK-2) 0.42 Troponin I < 0.012 11/25/17 11/25/17 11/25/17 14:45 20:05 20:05 Creatine Kinase 290 H CK-MB (CK-2) 0.42 0.37 Troponin I < 0.012 < 0.012 Impressions: Chest X-Ray 11/24/17 20:27 IMPRESSION: NO ACUTE RADIOGRAPHIC FINDING IN THE CHEST. Head CT 11/24/17 20:28 IMPRESSION: NORMAL BRAIN CT WITHOUT CONTRAST. EVIDENCE OF ACUTE STROKE: NO. Chest/Abdomen CTA 11/24/17 22:21 IMPRESSION: There is no pulmonary embolism, airspace infiltrates or pleural effusions Qualifiers - * PATIENT BEING DISCHARGED WITH ANY OF THE FOLLOWING DIAGNOSIS: No
== END 2017-11-26 20:21 | disposition home or self-care (01) ==
LOC: ER 20:09 → EH 11-25 01:35 → 3W 11-25 03:28
PROVIDERS: ADMIT Family Medicine; ATTEND Family Medicine
DX: R07.9 Chest pain, unspecified (principal); R55 Syncope and collapse; F43.10 Post-traumatic stress disorder, unspecified; F41.9 Anxiety disorder, unspecified; E03.9 Hypothyroidism, unspecified; R41.3 Other amnesia; R06.4 Hyperventilation; S09.90XA Unspecified injury of head, initial encounter; X58.XXXA Exposure to other specified factors, initial encounter; R01.1 Cardiac murmur, unspecified; F32.9 Major depressive disorder, single episode, unspecified; R42 Dizziness and giddiness; R11.0 Nausea; R00.0 Tachycardia, unspecified; R06.82 Tachypnea, not elsewhere classified; Z82.49 Family history of ischemic heart disease and other diseases of the circulatory system; Z98.890 Other specified postprocedural states; Z82.3 Family history of stroke; Z63.0 Problems in relationship with spouse or partner
CPT/HCPCS: 93005 ×2; 99285; 96360; 96361; 36415 ×3; 82553 ×2; 80307 ×2; 82550 ×2; 84443; 85025; 80048; 80053; 81001; 84484 ×2; 85379; 93306; 71045; 70450; 71275; 93010 ×2; 94762 ×2; G0378 ×3; J3475; J1650 ×2; J3490 ×3; J3480; J3411; J7030 ×2; J7120